=== PATIENT | female | born 1960 | race Caucasian/White ===

== ENCOUNTER 2018-04-24 14:52 | Inpatient (IN) | payer OTHER ==
[~2018-04-24] VITALS: Ht 172.7 cm; Wt 89.3 kg
[2018-04-24] MEDS ORDERED: ALBUTEROL/IPRATROPIUM 2.5MG/0.5MG, 3 ML ONE (15:44)
[2018-04-24] MEDS ORDERED: BENZONATATE 100 MG CAPSULE PO ONE (16:00)
[2018-04-24] MEDS ORDERED: BENZONATATE 100 MG CAPSULE ONE (16:09)
[2018-04-24] MEDS ORDERED: SODIUM CHLORIDE FLUSH 10ML SYR IVF ONE (17:30)
[2018-04-24] MEDS ORDERED: DILTIAZEM 60 MG TABLET PO ONE (17:30)
[2018-04-24] MEDS ORDERED: DILTIAZEM 5 MG/ML, 5ML IVPush ONE (17:30)
[2018-04-24] MEDS ORDERED: DILTIAZEM 5 MG/ML, 5ML ONE (17:49)
[2018-04-24] MEDS ORDERED: DILTIAZEM 60 MG TABLET ONE (17:49)
[2018-04-24 17:56] LABS: BASOPHILS % (AUTO) 1 % (0-1); EOSINOPHILS # (AUTO) 0.01 x10^3/uL (0-0.4); EOSINOPHILS % (AUTO) 0 % (1-7); LYMPHOCYTES # (AUTO) 1.86 x10^3/uL (1-3.4); LYMPHOCYTES % (AUTO) 20 % (22-44); MD NO; MEAN CORPUSCULAR HEMOGLOBIN 29.8 pg (27.0-34.8); MEAN CORPUSCULAR HGB CONC 33.6 g/dL (32.4-35.8); MEAN CORPUSCULAR VOLUME 88.6 fL (80-100); MEAN PLATELET VOLUME 7.4 fL (7.4-10.4); MONOCYTES # (AUTO) 0.83 x10^3/uL (0.2-0.8); MONOCYTES % (AUTO) 9 % (2-9); NEUTROPHILS # (AUTO) 6.42 x10^3/uL (1.8-6.8); NEUTROPHILS % (AUTO) 70 % (42-75); PLATELET COUNT 419 x10^3/uL (130-400); RED BLOOD COUNT 4.74 x10^6/uL (3.82-5.3); RED CELL DISTRIBUTION WIDTH 13.9 % (9.6-15.2)
[2018-04-24 18:05] LABS: INTERNATIONAL NORMALIZED RATIO 1.04 (0.93-1.1); PROTHROMBIN TIME 10.7 Seconds (9.6-11.5)
[2018-04-24 18:07] LABS: ALANINE AMINOTRANSFERASE 46 U/L (12-78); ALBUMIN 3.7 g/dL (3.4-5.0); ANION GAP 9 mmol/L (5-15); CALCIUM 9.4 mg/dL (8.5-10.1); CHLORIDE 109 mmol/L (98-107)
[2018-04-24 18:12] LABS: ALKALINE PHOSPHATASE 110 U/L (45-117); BILIRUBIN,TOTAL 1.5 mg/dL (0.2-1.0); TOTAL PROTEIN 7.7 g/dL (6.4-8.2); TROPONIN I < 0.015 ng/mL (0.000-0.045)
[2018-04-24 19:14] LABS: THYROID STIMULATING HORMONE 1.08 mIU/L (0.358-3.740)
[2018-04-24] MEDS ORDERED: ACETAMINOPHEN 325 MG TABLET PO PRN (19:30)
[2018-04-24] MEDS ORDERED: AMIODARONE 150 MG in DEXTROSE 5% 100 ML IV ONE (19:30)
[2018-04-24] MEDS ORDERED: FILTER 0.22 MICRON IV PRN (19:30)
[2018-04-24] MEDS ORDERED: BISACODYL 10 MG SUPP PR PRN (19:30)
[2018-04-24] MEDS ORDERED: POLYETHYLENE GLYCOL 17 GM PACKET PO PRN (19:30)
[2018-04-24] MEDS ORDERED: ONDANSETRON 2MG/ML, 2ML IVPush PRN (19:30)
[2018-04-24 19:52] VITALS: BP 137/79
[2018-04-24 19:53] VITALS: BP 137/79
[2018-04-24] MEDS: AMIODARONE 450 MG in DEXTROSE 5% 241 ML IV PRN (20:07)
[2018-04-24] MEDS: APIXABAN 5 MG TABLET PO SCH (20:53)
[2018-04-24] MEDS: SODIUM CHLORIDE FLUSH 10ML SYR IVF SCH (20:53)
[2018-04-24] MEDS: FUROSEMIDE 20 MG/2 ML IV SCH (20:53)
[2018-04-25 03:22] VITALS: BP 140/81
[2018-04-25] MEDS: AMIODARONE 450 MG in DEXTROSE 5% 241 ML IV PRN ×2 (03:40→18:05)
[2018-04-25 05:09] LABS: BASOPHILS # (AUTO) 0.11 x10^3/uL (0-0.1); BASOPHILS % (AUTO) 1 % (0-1); EOSINOPHILS # (AUTO) 0.05 x10^3/uL (0-0.4); EOSINOPHILS % (AUTO) 1 % (1-7); LYMPHOCYTES # (AUTO) 1.62 x10^3/uL (1-3.4); LYMPHOCYTES % (AUTO) 18 % (22-44); MD NO; MEAN CORPUSCULAR HEMOGLOBIN 29.5 pg (27.0-34.8); MEAN CORPUSCULAR HGB CONC 33.4 g/dL (32.4-35.8); MEAN CORPUSCULAR VOLUME 88.3 fL (80-100); MEAN PLATELET VOLUME 7.5 fL (7.4-10.4); MONOCYTES # (AUTO) 0.87 x10^3/uL (0.2-0.8); MONOCYTES % (AUTO) 10 % (2-9); NEUTROPHILS # (AUTO) 6.38 x10^3/uL (1.8-6.8); NEUTROPHILS % (AUTO) 71 % (42-75); PLATELET COUNT 349 x10^3/uL (130-400); RED BLOOD COUNT 4.41 x10^6/uL (3.82-5.3); RED CELL DISTRIBUTION WIDTH 14.2 % (9.6-15.2)
[2018-04-25 05:20] LABS: ALBUMIN 3.4 g/dL (3.4-5.0); ANION GAP 9 mmol/L (5-15); CALCIUM 8.6 mg/dL (8.5-10.1); CHLORIDE 109 mmol/L (98-107)
[2018-04-25 05:27] LABS: ALANINE AMINOTRANSFERASE 41 U/L (12-78); ALKALINE PHOSPHATASE 98 U/L (45-117); BILIRUBIN,TOTAL 1.4 mg/dL (0.2-1.0); CREATININE 1.02 mg/dL (0.55-1.02); TROPONIN I < 0.015 ng/mL (0.000-0.045)
[2018-04-25] MEDS: SENNA/DOCUSATE TABLET PO SCH (07:39)
[2018-04-25 07:46] VITALS: BP 109/77
[2018-04-25] MEDS: CARVEDILOL 6.25 MG TABLET PO SCH ×2 (08:00→16:36)
[2018-04-25] MEDS: POTASSIUM CHLORIDE 20 MEQ TAB.ER.PRT PO SCH (08:10)
[2018-04-25] MEDS: SODIUM CHLORIDE FLUSH 10ML SYR IVF SCH ×2 (08:10→20:38)
[2018-04-25] MEDS: APIXABAN 5 MG TABLET PO SCH ×2 (08:10→20:38)
[2018-04-25] MEDS: FUROSEMIDE 20 MG/2 ML IV SCH ×2 (10:38→16:35)
[2018-04-25 11:15] LABS: TROPONIN I < 0.015 ng/mL (0.000-0.045)
[2018-04-25 14:48] VITALS: BP 114/83
[2018-04-25 16:33] VITALS: BP 120/79
[2018-04-25 17:10] LABS: HEMOGLOBIN A1C 5.3 % (4.2-6.3)
[2018-04-25 20:01] VITALS: BP 104/71
[2018-04-25] MEDS: ATORVASTATIN 40 MG TABLET PO SCH (20:38)
[2018-04-26] VITALS (7 sets, daily range): BP systolic 90–125; BP diastolic 59–88
[2018-04-26] MEDS: CARVEDILOL 6.25 MG TABLET PO SCH (05:44)
[2018-04-26] MEDS: SENNA/DOCUSATE TABLET PO SCH (08:52)
[2018-04-26] MEDS: LISINOPRIL 5 MG TABLET PO SCH (08:57)
[2018-04-26] MEDS: SODIUM CHLORIDE FLUSH 10ML SYR IVF SCH ×2 (08:57→21:43)
[2018-04-26] MEDS: APIXABAN 5 MG TABLET PO SCH ×2 (08:57→21:43)
[2018-04-26] MEDS: FUROSEMIDE 20 MG/2 ML IV SCH ×2 (08:57→17:05)
[2018-04-26] MEDS: POTASSIUM CHLORIDE 20 MEQ TAB.ER.PRT PO SCH (08:57)
[2018-04-26] MEDS ORDERED: ASPIRIN 81 MG TABLET CHEW PO SCH (09:00)
[2018-04-26 09:15] LABS: ANION GAP 5 mmol/L (5-15); CALCIUM 8.8 mg/dL (8.5-10.1); CHLORIDE 109 mmol/L (98-107); CREATININE 1.17 mg/dL (0.55-1.02)
[2018-04-26] MEDS: AMIODARONE 200 MG TABLET PO SCH ×2 (11:10→21:43)
[2018-04-26] MEDS: CARVEDILOL 12.5 MG TABLET PO SCH (18:00)
[2018-04-26] MEDS: ATORVASTATIN 40 MG TABLET PO SCH (21:43)
[2018-04-27 01:16] VITALS: BP 107/70
[2018-04-27 05:33] LABS: ALANINE AMINOTRANSFERASE 31 U/L (12-78); ALBUMIN 3.1 g/dL (3.4-5.0); ANION GAP 8 mmol/L (5-15); CHLORIDE 109 mmol/L (98-107); CHOLESTEROL, TOTAL 103 mg/dL (140-239); CREATININE 1.26 mg/dL (0.55-1.02)
[2018-04-27 05:36] LABS: ALKALINE PHOSPHATASE 90 U/L (45-117); HDL CHOL % 25 % (28-40); HDL CHOLESTEROL (DIRECT) 26 mg/dL (40-60); LDL CHOLESTEROL,CALCULATED 52 mg/dL (54-169); TOTAL PROTEIN 6.8 g/dL (6.4-8.2); TRIGLYCERIDES 123 mg/dL (50-200); VLDL CHOLESTEROL 25 mg/dL (0-25)
[2018-04-27 05:41] VITALS: BP 100/69
[2018-04-27] MEDS: CARVEDILOL 12.5 MG TABLET PO SCH ×2 (05:51→18:07)
[2018-04-27 05:53] LABS: BASOPHILS # (AUTO) 0.07 x10^3/uL (0-0.1); BASOPHILS % (AUTO) 1 % (0-1); EOSINOPHILS # (AUTO) 0.05 x10^3/uL (0-0.4); EOSINOPHILS % (AUTO) 1 % (1-7); LYMPHOCYTES # (AUTO) 1.57 x10^3/uL (1-3.4); LYMPHOCYTES % (AUTO) 19 % (22-44); MD NO; MEAN CORPUSCULAR HEMOGLOBIN 29.2 pg (27.0-34.8); MEAN CORPUSCULAR HGB CONC 33.2 g/dL (32.4-35.8); MEAN CORPUSCULAR VOLUME 87.8 fL (80-100); MEAN PLATELET VOLUME 7.8 fL (7.4-10.4); MONOCYTES # (AUTO) 0.83 x10^3/uL (0.2-0.8); MONOCYTES % (AUTO) 10 % (2-9); NEUTROPHILS % (AUTO) 70 % (42-75); PLATELET COUNT 362 x10^3/uL (130-400); RED BLOOD COUNT 4.39 x10^6/uL (3.82-5.3); RED CELL DISTRIBUTION WIDTH 14.1 % (9.6-15.2)
[2018-04-27 07:37] VITALS: BP 100/68
[2018-04-27] MEDS ORDERED: REGADENOSON 0.4 MG/5 ML SYRINGE ONE (08:25)
[2018-04-27] MEDS: POTASSIUM CHLORIDE 20 MEQ TAB.ER.PRT PO SCH (10:50)
[2018-04-27] MEDS: FUROSEMIDE 20 MG/2 ML IV SCH (10:50)
[2018-04-27] MEDS: AMIODARONE 200 MG TABLET PO SCH ×2 (10:51→21:17)
[2018-04-27] MEDS: APIXABAN 5 MG TABLET PO SCH ×2 (10:51→21:17)
[2018-04-27] MEDS: SPIRONOLACTONE 25 MG TABLET PO SCH (10:51)
[2018-04-27] MEDS: SENNA/DOCUSATE TABLET PO SCH (10:51)
[2018-04-27] MEDS: SODIUM CHLORIDE FLUSH 10ML SYR IVF SCH ×2 (10:51→21:16)
[2018-04-27] MEDS: LISINOPRIL 5 MG TABLET PO SCH (10:52)
[2018-04-27 13:01] LABS: CULTURE INDICATED? YES; MICROSCOPIC INDICATED
[2018-04-27 15:29] VITALS: BP 95/69
[2018-04-27 18:00] VITALS: BP 114/84
[2018-04-27] MEDS: ATORVASTATIN 40 MG TABLET PO SCH (21:17)
[2018-04-28 00:29] VITALS: BP 96/65
[2018-04-28 05:16] LABS: ANION GAP 7 mmol/L (5-15); CALCIUM 8.7 mg/dL (8.5-10.1); CHLORIDE 108 mmol/L (98-107); CREATININE 1.21 mg/dL (0.55-1.02)
[2018-04-28] MEDS: CARVEDILOL 12.5 MG TABLET PO SCH (05:58)
[2018-04-28 08:16] VITALS: BP 108/75
[2018-04-28] MEDS ORDERED: LISINOPRIL 5 MG TABLET PO SCH (09:00)
[2018-04-28] MEDS ORDERED: FUROSEMIDE 40 MG TABLET PO SCH (09:00)
[2018-04-28] MEDS: AMIODARONE 200 MG TABLET PO SCH (09:29)
[2018-04-28] MEDS: APIXABAN 5 MG TABLET PO SCH (09:30)
[2018-04-28] MEDS: POTASSIUM CHLORIDE 20 MEQ TAB.ER.PRT PO SCH (09:30)
[2018-04-28] MEDS: SPIRONOLACTONE 25 MG TABLET PO SCH (09:30)
[2018-04-28] MEDS: SENNA/DOCUSATE TABLET PO SCH (09:33)
[2018-04-28] MEDS: SODIUM CHLORIDE FLUSH 10ML SYR IVF SCH (09:34)
[2018-04-28] MEDS ORDERED: ATOR40TA78 PO (10:32)
[2018-04-28] MEDS ORDERED: CARV12.543 PO (10:32)
[2018-04-28] MEDS ORDERED: POTA20TA6 PO (10:32)
[2018-04-28] MEDS ORDERED: SPIR25TA PO (10:32)
[2018-04-28] MEDS ORDERED: FURO40TA6 PO (10:32)
[2018-04-28] MEDS ORDERED: AMIO200T42 PO (10:32)
[2018-04-28] MEDS ORDERED: LISI5TAB7 PO (10:32)
[2018-04-28] MEDS ORDERED: APIX5TAB PO (10:32)
[2018-04-28] MEDS ORDERED: AMIODARONE 200 MG TABLET PO SCH (21:00)
== END 2018-04-28 13:58 | disposition home or self-care (01) | DRG 308 ==
LOC: ED 16:29 → EDIP 18:36 → 5SO 19:45 → DCLOUNGE 04-28 13:58
PROVIDERS: ADMIT Hospitalist; ATTEND Hospitalist
DX: I48.91 Unspecified atrial fibrillation (principal); I50.41 Acute combined systolic (congestive) and diastolic (congestive) heart failure; D68.69 Other thrombophilia; R17 Unspecified jaundice; G45.9 Transient cerebral ischemic attack, unspecified; I11.0 Hypertensive heart disease with heart failure; I42.0 Dilated cardiomyopathy; I27.81 Cor pulmonale (chronic); I95.9 Hypotension, unspecified; R73.9 Hyperglycemia, unspecified; D47.3 Essential (hemorrhagic) thrombocythemia; I27.29 Other secondary pulmonary hypertension; N28.9 Disorder of kidney and ureter, unspecified; J45.909 Unspecified asthma, uncomplicated; Z82.49 Family history of ischemic heart disease and other diseases of the circulatory system; Z87.891 Personal history of nicotine dependence; Z90.710 Acquired absence of both cervix and uterus; Z88.2 Allergy status to sulfonamides; Z91.040 Latex allergy status
CPT/HCPCS: 36415; 70450; 71046; 78452; 80048; 80053; 80061; 81001; 83036; 83735; 83880; 84443; 84484; 85025; 85610; 85730; 87086; 93005; 93017; 94640; 96374; C8929; J2785; J7060; A9502; C9898; J0282; J1940

== ENCOUNTER 2018-06-13 11:54 | Inpatient (IN) | payer OTHER ==
[~2018-06-13] VITALS: Ht 172.7 cm; Wt 80.2 kg
[~2018-06-13 11:54] MED LIST: AMIO200T42 PO; APIX5TAB PO; ATOR40TA78 PO; CARV12.543 PO; FURO40TA6 PO; LISI5TAB7 PO; POTA20TA6 PO; SPIR25TA PO
[2018-06-13] MEDS ORDERED: SODIUM CHLORIDE 0.9% 1,000ML IVBOLUS ONE ×2 (12:30→21:30)
[2018-06-13] MEDS ORDERED: SODIUM CHLORIDE FLUSH 10ML SYR IVF ONE (12:30)
[2018-06-13 13:08] LABS: BASOPHILS # (AUTO) 0.03 x10^3/uL (0-0.1); BASOPHILS % (AUTO) 1 % (0-1); EOSINOPHILS # (AUTO) 0.07 x10^3/uL (0-0.4); EOSINOPHILS % (AUTO) 1 % (1-7); LYMPHOCYTES # (AUTO) 1.41 x10^3/uL (1-3.4); LYMPHOCYTES % (AUTO) 20 % (22-44); MD NO; MEAN CORPUSCULAR HEMOGLOBIN 29.3 pg (27.0-34.8); MEAN CORPUSCULAR HGB CONC 33.6 g/dL (32.4-35.8); MEAN CORPUSCULAR VOLUME 87.1 fL (80-100); MEAN PLATELET VOLUME 7.3 fL (7.4-10.4); MONOCYTES # (AUTO) 0.63 x10^3/uL (0.2-0.8); MONOCYTES % (AUTO) 9 % (2-9); NEUTROPHILS # (AUTO) 4.85 x10^3/uL (1.8-6.8); NEUTROPHILS % (AUTO) 69 % (42-75); PLATELET COUNT 336 x10^3/uL (130-400); RED BLOOD COUNT 4.57 x10^6/uL (3.82-5.3)
[2018-06-13 13:17] LABS: ALANINE AMINOTRANSFERASE 36 U/L (12-78); ALBUMIN 3.6 g/dL (3.4-5.0); ANION GAP 8 mmol/L (5-15); CALCIUM 9.7 mg/dL (8.5-10.1); CHLORIDE 107 mmol/L (98-107); CREATININE 4.14 mg/dL (0.55-1.02)
[2018-06-13 13:19] LABS: ALKALINE PHOSPHATASE 105 U/L (45-117); BILIRUBIN,TOTAL 0.8 mg/dL (0.2-1.0); TOTAL PROTEIN 7.8 g/dL (6.4-8.2)
[2018-06-13 14:07] LABS: INTERNATIONAL NORMALIZED RATIO 1.26 (0.93-1.1); PROTHROMBIN TIME 12.9 Seconds (9.6-11.5)
[2018-06-13] MEDS ORDERED: SODIUM CHLORIDE 0.9% 1,000 ML IV SCH (14:30)
[2018-06-13 15:01] LABS: TROPONIN I < 0.015 ng/mL (0.000-0.045)
[2018-06-13] MEDS ORDERED: POTASSIUM CHLORIDE 20 MEQ in LACTATED RINGERS 1,000 ML IV SCH (16:03)
[2018-06-13 16:22] VITALS: BP 92/58
[2018-06-13 17:49] LABS: CLOSTRIDIUM DIFFICILE ANTIGEN NEGATIVE; CLOSTRIDIUM DIFFICILE TOXIN NEGATIVE (Negative)
[2018-06-13] MEDS ORDERED: CARVEDILOL 12.5 MG TABLET PO SCH (18:00)
[2018-06-13] MEDS: SODIUM CHLORIDE 0.9% 1,000 ML IV SCH (18:07)
[2018-06-13] MEDS: CARVEDILOL 12.5 MG TABLET PO SCH (18:07)
[2018-06-13 20:26] VITALS: BP 87/48
[2018-06-13] MEDS: AMIODARONE 200 MG TABLET PO SCH (21:00)
[2018-06-13 21:33] LABS: CULTURE INDICATED? YES; MICROSCOPIC INDICATED
[2018-06-13] MEDS: APIXABAN 5 MG TABLET PO SCH (21:41)
[2018-06-13 21:42] VITALS: BP 94/60
[2018-06-14 01:24] VITALS: BP 102/67
[2018-06-14 05:34] VITALS: BP 94/62
[2018-06-14] MEDS: CARVEDILOL 12.5 MG TABLET PO SCH ×2 (06:00→18:00)
[2018-06-14] MEDS: SODIUM CHLORIDE 0.9% 1,000 ML IV SCH (07:00)
[2018-06-14 07:47] LABS: ANION GAP 7 mmol/L (5-15); CALCIUM 8.7 mg/dL (8.5-10.1); CHLORIDE 115 mmol/L (98-107); CREATININE 2.44 mg/dL (0.55-1.02)
[2018-06-14 08:02] LABS: MEAN CORPUSCULAR HEMOGLOBIN 28.5 pg (27.0-34.8); MEAN CORPUSCULAR VOLUME 86.3 fL (80-100); MEAN PLATELET VOLUME 7.2 fL (7.4-10.4); PLATELET COUNT 284 x10^3/uL (130-400); RED BLOOD COUNT 4.07 x10^6/uL (3.82-5.3); RED CELL DISTRIBUTION WIDTH 15.1 % (9.6-15.2)
[2018-06-14 08:17] VITALS: BP 112/71
[2018-06-14] MEDS: APIXABAN 5 MG TABLET PO SCH ×2 (08:31→21:36)
[2018-06-14] MEDS: AMIODARONE 200 MG TABLET PO SCH ×2 (08:31→21:00)
[2018-06-14 08:43] LABS: MD YES
[2018-06-14 08:45] LABS: BAND#(MANUAL) 0.05 x10^3/uL; BANDS%(MANUAL) 1 % (0-7); BASOS#(MANUAL) 0.05 x10^3/uL (0-0.1); BASOS% (MANUAL) 1 % (0-1); LYMPH#(MANUAL) 1.43 x10^3/uL (1-3.4); LYMPHS% (MANUAL) 27 % (22-44); MONOS#(MANUAL) 0.69 x10^3/uL (0.3-2.7); MONOS% (MANUAL) 13 % (2-9)
[2018-06-14 08:46] LABS: EOS#(MANUAL) 0.11 x10^3/uL (0.0-0.4); EOS% (MANUAL) 2 % (1-7); SEG#(MANUAL) 2.97 x10^3/uL (1.8-6.8); SEGS% (MANUAL) 56 % (42-75)
[2018-06-14 08:47] LABS: <PLATELET ESTIMATE> ADEQUATE; <PLT MORPHOLOGY> NORMAL PLT MORPH; <RBC MORPHOLOGY> NORMAL
[2018-06-14 13:27] VITALS: BP 99/64
[2018-06-14] MEDS ORDERED: SODIUM CHLORIDE 0.9% 1,000 ML IV SCH (15:30)
[2018-06-14 19:30] VITALS: BP 97/63
[2018-06-14] MEDS: CHOLESTYRAMINE LIGHT 4GM PACKET PO SCH (21:36)
[2018-06-15 00:40] VITALS: BP 125/74
[2018-06-15] MEDS: CARVEDILOL 12.5 MG TABLET PO SCH ×2 (05:12→18:02)
[2018-06-15 05:34] LABS: BASOPHILS # (AUTO) 0.03 x10^3/uL (0-0.1); BASOPHILS % (AUTO) 1 % (0-1); EOSINOPHILS # (AUTO) 0.15 x10^3/uL (0-0.4); EOSINOPHILS % (AUTO) 3 % (1-7); LYMPHOCYTES % (AUTO) 23 % (22-44); MD NO; MEAN CORPUSCULAR HEMOGLOBIN 29.2 pg (27.0-34.8); MEAN CORPUSCULAR HGB CONC 33.4 g/dL (32.4-35.8); MEAN CORPUSCULAR VOLUME 87.4 fL (80-100); MEAN PLATELET VOLUME 7.2 fL (7.4-10.4); MONOCYTES # (AUTO) 0.55 x10^3/uL (0.2-0.8); MONOCYTES % (AUTO) 10 % (2-9); NEUTROPHILS # (AUTO) 3.42 x10^3/uL (1.8-6.8); NEUTROPHILS % (AUTO) 64 % (42-75); PLATELET COUNT 269 x10^3/uL (130-400); RED BLOOD COUNT 3.94 x10^6/uL (3.82-5.3); RED CELL DISTRIBUTION WIDTH 15.6 % (9.6-15.2)
[2018-06-15 05:35] LABS: ANION GAP 7 mmol/L (5-15); CALCIUM 8.3 mg/dL (8.5-10.1); CHLORIDE 116 mmol/L (98-107)
[2018-06-15 05:38] LABS: CREATININE 1.69 mg/dL (0.55-1.02)
[2018-06-15] MEDS ORDERED: D5%-0.45% NACL 1,000 ML IV SCH (07:00)
[2018-06-15 08:12] VITALS: BP 100/67
[2018-06-15] MEDS: APIXABAN 5 MG TABLET PO SCH ×2 (08:16→20:24)
[2018-06-15] MEDS: AMIODARONE 200 MG TABLET PO SCH ×2 (08:18→20:23)
[2018-06-15] MEDS: CHOLESTYRAMINE LIGHT 4GM PACKET PO SCH (08:18)
[2018-06-15 12:11] VITALS: BP 122/73
[2018-06-15 18:01] VITALS: BP 107/67
[2018-06-15] MEDS: LOPERAMIDE 1 MG/5 ML, 10ML UDC PO PRN (18:02)
[2018-06-15 20:00] VITALS: BP 105/66
[2018-06-16 02:00] VITALS: BP 113/76
[2018-06-16 05:15] VITALS: BP 116/72
[2018-06-16] MEDS: CARVEDILOL 12.5 MG TABLET PO SCH (05:19)
[2018-06-16 05:58] LABS: BASOPHILS # (AUTO) 0.04 x10^3/uL (0-0.1); BASOPHILS % (AUTO) 1 % (0-1); EOSINOPHILS # (AUTO) 0.23 x10^3/uL (0-0.4); EOSINOPHILS % (AUTO) 5 % (1-7); LYMPHOCYTES # (AUTO) 1.16 x10^3/uL (1-3.4); LYMPHOCYTES % (AUTO) 24 % (22-44); MD NO; MEAN CORPUSCULAR HEMOGLOBIN 28.8 pg (27.0-34.8); MEAN CORPUSCULAR HGB CONC 33.5 g/dL (32.4-35.8); MEAN PLATELET VOLUME 6.9 fL (7.4-10.4); MONOCYTES # (AUTO) 0.55 x10^3/uL (0.2-0.8); MONOCYTES % (AUTO) 11 % (2-9); NEUTROPHILS # (AUTO) 2.85 x10^3/uL (1.8-6.8); NEUTROPHILS % (AUTO) 59 % (42-75); PLATELET COUNT 276 x10^3/uL (130-400); RED CELL DISTRIBUTION WIDTH 15.3 % (9.6-15.2)
[2018-06-16 06:02] LABS: ALBUMIN 2.8 g/dL (3.4-5.0); ANION GAP 6 mmol/L (5-15); CALCIUM 8.6 mg/dL (8.5-10.1); CHLORIDE 115 mmol/L (98-107); CREATININE 1.39 mg/dL (0.55-1.02)
[2018-06-16 07:02] VITALS: BP 109/70
[2018-06-16] MEDS: AMIODARONE 200 MG TABLET PO SCH (08:16)
[2018-06-16] MEDS: APIXABAN 5 MG TABLET PO SCH (08:16)
[2018-06-16 12:17] VITALS: BP 99/52
[2018-06-16] MEDS: LOPERAMIDE 1 MG/5 ML, 10ML UDC PO PRN (14:50)
== END 2018-06-16 17:00 | disposition home or self-care (01) | DRG 391 ==
LOC: ED 13:36 → EDIP 15:04 → 4WST 16:13 → DCLOUNGE 06-16 16:43
PROVIDERS: ADMIT Internal Medicine; ATTEND Internal Medicine
DX: K52.9 Noninfective gastroenteritis and colitis, unspecified (principal); N17.0 Acute kidney failure with tubular necrosis; I42.0 Dilated cardiomyopathy; I50.42 Chronic combined systolic (congestive) and diastolic (congestive) heart failure; I48.2 Chronic atrial fibrillation; N18.9 Chronic kidney disease, unspecified; Z79.01 Long term (current) use of anticoagulants; Z90.710 Acquired absence of both cervix and uterus; Z88.2 Allergy status to sulfonamides; Z91.040 Latex allergy status; Z82.3 Family history of stroke
CPT/HCPCS: 36415; 76770; 80048; 80053; 81001; 82040; 82436; 82570; 84133; 84156; 84300; 84484; 85025; 85610; 85730; 86850; 86900; 87046; 87086; 87324; 87427; 93005; 99285; J7030

== ENCOUNTER → 2018-08-18 | Outpatient (CLI) | payer OTHER | END | disposition home or self-care (01) | LOC: CFH 14:55 | PROVIDERS: ATTEND Internal Medicine Cardiovascular Disease | DX: I34.0 Nonrheumatic mitral (valve) insufficiency (principal); I31.3 Pericardial effusion (noninflammatory); I42.9 Cardiomyopathy, unspecified; I10 Essential (primary) hypertension; E78.5 Hyperlipidemia, unspecified | CPT/HCPCS: 93306 ==

== ENCOUNTER 2019-02-09 11:34 | Emergency (ER) | payer OTHER ==
[~2019-02-09] VITALS: Ht 170.2 cm; Wt 74.8 kg
[2019-02-09 11:43] VITALS: BP 98/67
--- NOTE | 2019-02-09 12:04 | NUR ---
PT REFUSED CXR
[2019-02-09 12:20] LABS: INTERNATIONAL NORMALIZED RATIO 1.09 (0.93-1.1); PROTHROMBIN TIME 11.4 Seconds (9.6-11.5)
[2019-02-09 12:24] LABS: ALANINE AMINOTRANSFERASE 33 U/L (12-78); ALBUMIN 4.1 g/dL (3.4-5.0); ANION GAP 5 mmol/L (5-15); CHLORIDE 109 mmol/L (98-107); CREATININE 1.47 mg/dL (0.55-1.02)
[2019-02-09 12:26] LABS: BASOPHILS # (AUTO) 0.03 x10^3/uL (0-0.1); BASOPHILS % (AUTO) 1 % (0-1); EOSINOPHILS # (AUTO) 0.01 x10^3/uL (0-0.4); EOSINOPHILS % (AUTO) 0 % (1-7); LYMPHOCYTES # (AUTO) 1.39 x10^3/uL (1-3.4); LYMPHOCYTES % (AUTO) 29 % (22-44); MD NO; MEAN CORPUSCULAR HEMOGLOBIN 30.6 pg (27.0-34.8); MEAN CORPUSCULAR HGB CONC 34.3 g/dL (32.4-35.8); MEAN CORPUSCULAR VOLUME 89.3 fL (80-100); MEAN PLATELET VOLUME 6.6 fL (7.4-10.4); MONOCYTES # (AUTO) 0.56 x10^3/uL (0.2-0.8); MONOCYTES % (AUTO) 12 % (2-9); NEUTROPHILS # (AUTO) 2.73 x10^3/uL (1.8-6.8); NEUTROPHILS % (AUTO) 58 % (42-75); PLATELET COUNT 305 x10^3/uL (130-400); RED BLOOD COUNT 4.28 x10^6/uL (3.82-5.3); RED CELL DISTRIBUTION WIDTH 13.4 % (9.6-15.2)
[2019-02-09 12:28] LABS: ALKALINE PHOSPHATASE 97 U/L (45-117); BILIRUBIN,TOTAL 0.9 mg/dL (0.2-1.0); TOTAL PROTEIN 7.7 g/dL (6.4-8.2); TROPONIN I < 0.015 ng/mL (0.000-0.045)
--- NOTE | 2019-02-09 12:40 | NUR ---
Pt to 16 from lobby
--- NOTE | 2019-02-09 12:55 | NUR ---
ASSESSMENT COMPLETED. MD SPEAR SINCE ARRIVAL TO ROOM. TO BE DISCHARGED
== END 2019-02-09 13:09 | disposition home or self-care (01) ==
LOC: ED 12:45
DX: R00.2 Palpitations (principal); J45.909 Unspecified asthma, uncomplicated; Z88.1 Allergy status to other antibiotic agents
CPT/HCPCS: 36415; 80053; 84439; 84443; 84484; 85025; 85610; 93005; 99284

== ENCOUNTER → 2021-02-28 | Outpatient (CLI) | payer BC ==
[~2021-02-28] MED LIST changes: +REGADENOSON 0.4 MG/5 ML SYRINGE ONE
== END | disposition home or self-care (01) ==
LOC: CFH 07:56
PROVIDERS: ATTEND Internal Medicine Cardiovascular Disease
DX: I48.91 Unspecified atrial fibrillation (principal); I42.9 Cardiomyopathy, unspecified; E78.2 Mixed hyperlipidemia
CPT/HCPCS: 78452; 93017; A9502; J2785